=== PATIENT | female | born 1995 | race American Indian/Alaskan Native ===

== ENCOUNTER 2021-05-29 14:35 | Emergency (ER) | payer MEDICAID ==
[2021-05-29 14:56] VITALS: BP 121/76
[2021-05-29] MEDS ORDERED: ACETAMINOPHEN 500 MG TAB PO ONE (15:05)
[2021-05-29 16:25] LABS: Bacteria,Urine 1+ /HPF (Negative); Bilirubin,Urine NEG (Negative); Blood,Urine NEG (Negative); Color,Urine Yellow (Yellow); Mucus,Urine FEW /HPF; Protein,Urine <15 mg/dL mg/dL (Negative); Urobilinogen,Urine < 2.0 mg/dL (<2.0)
--- NOTE | 2021-05-29 17:40 | Ultrasound Report ---
ULTRASOUND OBSTETRIC INDICATION / CLINICAL INFORMATION: fever and no care. TECHNIQUE: Transabdominal. COMPARISON: None available. FINDINGS: Single intrauterine . Biparietal Diameter = 4.6 cm = 19, 6 weeks, days Head Circumference = 17.8 cm = 20, 2 weeks, days Abdominal Circumference = 14.4 cm = 19, 5 weeks, days Femur Length = 3.3 cm = 20, 3 weeks, days Average Ultrasound Age (AUA) = 20, 1 weeks, days Heart Rate: 150 on beats per minute. Estimated Weight in grams (if calculated): 329 Position: breech. Cervix: closed. Length in cm (if measured): 5.6 Placenta: anterior and free of the os. Amniotic Fluid Volume: normal Maternal Adnexa: No significant abnormality. IMPRESSION: 1. Single, living intrauterine with estimated sonographic age of 20, 1 weeks, days. 2. No significant sonographic abnormality. Signer Name: Kris Galindo MD Signed: 05/29/2021 5:35 PM Workstation Name: [id number]
--- NOTE | 2021-05-29 17:50 | Emergency Department Report ---
ED General Adult HPI - General Chief complaint: Fever Stated complaint: FEVER Time Seen by Provider: 05/29/21 14:54 Source: patient Mode of arrival: Ambulatory Limitations: No Limitations - History of Present Illness Initial comments: Patient is a 25-year-old female who presents with fever and fatigue. Patient states that her last menstrual period was in November she does not know how many weeks she is because she has not had any care since her missed period. Patient recently moved here from [place] 3 weeks ago. Patient denies any abdominal pain she states that she has been around 7 has been sick her child. And then she has a stuffy nose and congestion. Patient denies having any shortness of breath no hypoxia no fever at home. Patient has not took any [id number] medications patient does not smoke or drink. Patient is G3, P1 Severity scale (0 -10): 0 - Related Data Previous Rx's Medication Instructions Recorded Last Taken Type Nitrofurantoin [place]/M-Cryst 100 mg PO Q12HR #14 capsule 05/29/21 Unknown Rx [Macrobid CAP] Allergies Allergy/AdvReac Type Severity Reaction Status Date / Time No Known Allergies Allergy Verified 05/29/21 15:28 ED Review of Systems ROS: Stated complaint: FEVER Other details as noted in HPI Constitutional: fever, malaise. denies: chills Eyes: denies: eye pain, eye discharge, vision change ENT: denies: ear pain, throat pain Respiratory: denies: cough, shortness of breath, wheezing Cardiovascular: denies: chest pain, palpitations Endocrine: no symptoms reported Gastrointestinal: denies: abdominal pain, nausea, diarrhea Genitourinary: denies: urgency, dysuria, discharge Musculoskeletal: denies: back pain, joint swelling, arthralgia Skin: denies: rash, lesions Neurological: denies: headache, weakness, paresthesias Psychiatric: denies: anxiety, depression Hematological/Lymphatic: denies: easy bleeding, easy bruising ED Past Medical Hx - Past Medical History Previous Medical History?: No - Surgical History Past Surgical History?: No - Social History Smoking Status: Never Smoker Substance Use Type: None - Medications Home Medications: Home Medications Medication Instructions Recorded Confirmed Last Taken Type Nitrofurantoin [place]/M-Cryst 100 mg PO Q12HR #14 capsule 05/29/21 Unknown Rx [Macrobid CAP] ED Physical Exam - General Limitations: No Limitations General appearance: alert, in no apparent distress - Head Head exam: Present: atraumatic, normocephalic - Eye Eye exam: Present: normal appearance - ENT ENT exam: Present: mucous membranes moist - Neck Neck exam: Present: normal inspection - Respiratory Respiratory exam: Present: normal lung sounds bilaterally. Absent: respiratory distress - Cardiovascular Cardiovascular Exam: Present: regular rate, normal rhythm. Absent: systolic murmur, diastolic murmur, rubs, gallop - GI/Abdominal GI/Abdominal exam: Present: soft, normal bowel sounds, other (Gravid uterus) - Extremities Exam Extremities exam: Present: normal inspection - Back Exam Back exam: Present: normal inspection - Neurological Exam Neurological exam: Present: alert, oriented X3 - Psychiatric Psychiatric exam: Present: normal affect, normal mood - Skin Skin exam: Present: warm, dry, intact, normal color. Absent: rash ED Course Vital Signs 05/29/21 05/29/21 14:43 14:52 Temperature 99.1 F 99.1 F Pulse Rate 121 H 66 Respiratory 20 12 Rate Blood Pressure 146/67 121/76 Blood Pressure 121/71 [Right] O2 Sat by Pulse 95 99 Oximetry ED Medical Decision Making - Radiology Data Radiology results: report reviewed, image reviewed Patient is 24 weeks and 7 days - Medical Decision Making Medical diagnosis for shortness of Differential pneumonia, bronchitis, UTI The patient being I will not get chest x-ray patient can go home with Tylenol and can follow-up. Critical care attestation.: If time is entered above; I have spent that time in minutes in the direct care of this critically ill patient, excluding procedure time. ED Disposition Clinical Impression: Qualifiers: Weeks of gestation: 24 weeks Qualified Code(s): Z3A.24 - 24 weeks gestation of URI (upper respiratory infection) Qualifiers: URI type: unspecified viral URI Qualified Code(s): J06.9 - Acute upper respiratory infection, unspecified UTI (urinary tract infection) Qualifiers: Urinary tract infection type: acute cystitis Hematuria presence: without hematuria Qualified Code(s): N30.00 - Acute cystitis without hematuria Disposition: HOME / SELF CARE / HOMELESS Is pt being admited?: No Does the pt Need Aspirin: No Condition: Stable Instructions: Upper Respiratory Infection, Adult, [id number], Eating Plan for Women, and Urinary Tract Infection Prescriptions: Nitrofurantoin [place]/M-Cryst [Macrobid CAP] 100 mg PO Q12HR #14 capsule Referrals: PRIMARY CARE, [Primary Care Provider] - 3-5 Days ROSELINE ZEE MD [Staff Physician] - 3-5 Days
== END 2021-05-29 18:18 | disposition home or self-care (01) ==
LOC: ED 14:35
DX: O99.512 Diseases of the respiratory system complicating pregnancy, second trimester (principal); J06.9 Acute upper respiratory infection, unspecified; O23.42 Unspecified infection of urinary tract in pregnancy, second trimester; N39.0 Urinary tract infection, site not specified; Z3A.24 24 weeks gestation of pregnancy
CPT/HCPCS: 76805; 81001; 87086; 99284